=== PATIENT | female | born 1965 | race Caucasian/White ===

== ENCOUNTER 2016-06-16 22:31 | Emergency (ER) | payer MEDICARE, OTHER ==
[~2016-06-16 22:31] MED LIST: ASPIRIN EC325 MG PO; CARTRIDGE STAM1 EACH SQ; CATAPRES 0.1MG0.1 MG PO; CEFTIN500 MG PO; COZAAR50 MG PO; HYDRALAZINE HC100 MG PO; IMDUR ER TAB 3030 MG PO; LEVEMIR100 UNIT/1 SQ; LOMOTIL 2.5-0.1 EACH PO; NITROGLYCERIN0.4 MG SL; NOVOLOG 10100 UNITS1 INJ; PHENERGAN 12.12.5 M1 PO; PHOSLO667 MG PO; PRAVACHOL40 MG PO
[2016-06-17 00:08] LABS: HEMOGLOBIN 10.9 gm/dl (12.3-15.3); RED BLOOD COUNT 3.92 M/UL (4.00-5.10); WHITE BLOOD COUNT 8.1 K/UL (4.5-11.0)
== END 2016-06-17 06:58 | disposition home or self-care (01) ==
LOC: ER1 22:31
PROVIDERS: Physician Assistant
DX: E11.649 Type 2 diabetes mellitus with hypoglycemia without coma (principal); E11.65 Type 2 diabetes mellitus with hyperglycemia; I12.9 Hypertensive chronic kidney disease with stage 1 through stage 4 chronic kidney disease, or unspecified chronic kidney disease; N18.9 Chronic kidney disease, unspecified; E11.22 Type 2 diabetes mellitus with diabetic chronic kidney disease; F17.200 Nicotine dependence, unspecified, uncomplicated; Z88.5 Allergy status to narcotic agent; Z79.4 Long term (current) use of insulin; Z95.5 Presence of coronary angioplasty implant and graft
CPT/HCPCS: 36415; 71010; 80053; 82009; 82800; 82962; 84484; 85025; 93005; 96372; 99285; J1815

== ENCOUNTER 2016-09-06 09:54 | Emergency (ER) | payer MEDICARE, OTHER ==
[2016-09-06 10:59] LABS: HEMOGLOBIN 10.7 gm/dl (12.3-15.3); RED BLOOD COUNT 4.02 M/UL (4.00-5.10); WHITE BLOOD COUNT 7.5 K/UL (4.5-11.0)
== END 2016-09-06 14:45 | disposition home or self-care (01) ==
LOC: ER1 09:54
PROVIDERS: Family Medicine
DX: E11.649 Type 2 diabetes mellitus with hypoglycemia without coma (principal); E11.22 Type 2 diabetes mellitus with diabetic chronic kidney disease; I12.0 Hypertensive chronic kidney disease with stage 5 chronic kidney disease or end stage renal disease; N18.6 End stage renal disease; E78.5 Hyperlipidemia, unspecified; F17.200 Nicotine dependence, unspecified, uncomplicated; Z99.2 Dependence on renal dialysis; Z96.41 Presence of insulin pump (external) (internal); Z79.4 Long term (current) use of insulin; Z88.5 Allergy status to narcotic agent; Z88.8 Allergy status to other drugs, medicaments and biological substances; Z79.899 Other long term (current) drug therapy
CPT/HCPCS: 36415; 70450; 71010; 80053; 82550; 82553; 82803; 82962; 83874; 84484; 85025; 85610; 85730; 96374; 96375; 96376; 99284; J2310; J2405